=== PATIENT | female | born 2000 | race African-American/Black ===

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

== ENCOUNTER 2024-07-28 19:50 | Emergency (ER) | payer OTHER ==
--- NOTE | 2024-07-28 22:24 | EDPHYS ---
Physician Documentation [facility] Name: Flakito Adkins Age: 24 yrs Sex: Female : 2000 Arrival Date: 07/28/2024 Time: 19:50 Bed 25 Private MD: ED Physician Arun Leslie HPI: 07/28 20:04 This 24 yrs old Black Female presents to ER via Unassigned with complaints of Flank sp4 Pain. 22:37 24-year-old female presents with sudden onset of left lower chest pain worse with deep sp4 inspiration. Patient denied fever chills or cough. . 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 - Infectious Disease History:: Denies. - Social history:: Smoking status: Patient/guardian denies using tobacco, Patient uses alcohol, occasionally. - Family history:: not pertinent. ROS: 22:37 Constitutional: Negative for fever, chills, and weight loss, positive left lower chest sp4 pleuritic chest pain 22:37 All other systems are negative, Exam: 22:37 Constitutional: This is a well developed, well nourished patient who is awake, alert, sp4 and in no acute distress. Head/Face: Normocephalic, atraumatic. Eyes: Pupils equal round and reactive to light, extra-ocular motions intact. Lids and lashes normal. Conjunctiva and sclera are not injected. Cornea within normal limits. Periorbital areas with no swelling, redness, or edema. ENT: Nares patent. No nasal discharge, no septal abnormalities noted. Tympanic membranes are normal and external auditory canals are clear. Oropharynx with no redness, swelling, or masses, exudates, or evidence of obstruction, uvula midline. Mucous membranes moist. Neck: Trachea midline, no thyromegaly or masses palpated, and no cervical lymphadenopathy. Supple, full range of motion without nuchal rigidity, or vertebral point tenderness. Chest/axilla: Normal chest wall appearance and motion. Nontender with no deformity. No lesions are appreciated. Cardiovascular: Regular rate and rhythm with a normal S1 and S2. No gallops, murmurs, or rubs. Normal PMI, no JVD. No pulse deficits. Respiratory: Lungs have equal breath sounds bilaterally, clear to auscultation and percussion. No rales, rhonchi or wheezes noted. No increased work of breathing, no retractions or nasal flaring. Abdomen/GI: Soft, with normal bowel sounds. No distension or tympany. No guarding or rebound. No evidence of tenderness throughout. Back: No spinal tenderness. No costovertebral tenderness. Skin: Warm, dry with normal turgor. Normal color with no rashes, no lesions, and no evidence of cellulitis. MS/ Extremity: Pulses equal, no cyanosis. Neurovascular intact. Full, normal range of motion. Neuro: Awake and alert, GCS 15, oriented to person, place, time, and situation. Cranial nerves II-XII grossly intact. Motor strength 5/5 in all extremities. Sensory grossly intact. Psych: Awake, alert, with orientation to person, place and time. Behavior, mood, and affect are within normal limits Vital Signs: 20:08 BP 132 / 65; Pulse 81; Resp 18 S; Temp 97.1(O); Pulse Ox 97% on R/A; Weight 64.41 kg; me1 Height 5 ft. 3 in. ; Pain 4/10; 20:08 Body Mass Index 25.15 (64.41 kg, 160.02 cm) me1 20:08 Pain Scale: Adult me1 Steve Coma Score: 22:37 Eye Response: spontaneous(4). Motor Response: obeys commands(6). Verbal Response: sp4 oriented(5). Total: 15. MDM: 20:09 Medical Screening Exam initiated sp4 22:36 ED course: Patient was assessed and evaluated in the emergency room chair #3, sp4 appropriate orders were placed. Patient complains of pleuritic left lower chest pain. Left flank pain as well. Vital signs are stable. Patient subsequently placed back in a waiting room while she is waiting for emergency room in ER. Patient apparently eloped from the waiting area in ER.. 22:40 Differential diagnosis: nephrolithiasis, pyelonephritis, Pleurisy. Data reviewed: vital sp4 signs, nurses notes. ED course: Patient left the emergency department prior to any completion of any ordered tests.. 07/28 20:05 Order name: IV Saline Lock sp4 07/28 20:05 Order name: Labs collected and sent sp4 Administered Medications: No medications were administered Disposition: 22:41 Chart complete. sp4 Disposition Summary: 07/28/24 22:23 Eloped Notes: Disposition: before being seen by provider br2 Reason: (see nurse's notes) br2 Signatures: Dispatcher [employer] Arun Monreal MD MD sp4 Nicole Kelly RN RN me1 Trina Holland RN RN br2
--- NOTE | 2024-07-28 22:24 | ER ---
Nurse's Notes [facility] Name: Flakito Adkins Age: 24 yrs Sex: Female : 2000 Arrival Date: 07/28/2024 Time: 19:50 Bed 25 [facility] MD: Diagnosis: Presentation: 07/28 20:08 Chief complaint: Patient states: LATERAL ABDOMINAL PAIN SINCE SATURDAY...WORSE TODAY me1 AFTER THE GYM. PT STATES SHE HAS PUSHING HERSELF HARDER AT THE GYM. Coronavirus screen: Client denies travel out of the [place] in the last 14 days. Ebola Screen: Patient denies exposure to infectious person. Initial Sepsis Screen: Does the patient meet any 2 criteria? No. Patient's initial sepsis screen is negative. Does the patient have a suspected source of infection? No. Patient's initial sepsis screen is negative. Risk Assessment: Do you want to hurt yourself or someone else? Patient reports no desire to harm self or others. Onset of symptoms was July 27, 2024. 20:08 Method Of Arrival: Ambulatory az1 20:08 Acuity: GOVIND 3 me1 Triage Assessment: 20:10 General: Appears in no apparent distress. comfortable, Behavior is calm, cooperative. me1 Pain: Complains of pain in anterior aspect of left lateral abdomen Pain currently is 4 out of 10 on a pain scale. 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 - Infectious Disease History:: Denies. - Social history:: Smoking status: Patient/guardian denies using tobacco, Patient uses alcohol, occasionally. - Family history:: not pertinent. Vital Signs: 20:08 BP 132 / 65; Pulse 81; Resp 18 S; Temp 97.1(O); Pulse Ox 97% on R/A; Weight 64.41 kg; me1 Height 5 ft. 3 in. ; Pain 4/10; 20:08 Body Mass Index 25.15 (64.41 kg, 160.02 cm) me1 20:08 Pain Scale: Adult me1 [place] Coma Score: 22:37 Eye Response: spontaneous(4). Motor Response: obeys commands(6). Verbal Response: sp4 oriented(5). Total: 15. ED Course: 19:55 Patient arrived in ED. gm2 20:04 Arun Leslie MD is Attending Physician. sp4 20:10 Triage completed. me1 20:10 Arm band placed on right wrist. me1 Administered Medications: No medications were administered Outcome: 22:23 Patient left the ED. br2 Signatures: Arun Leslie MD MD sp4 Nicole Kelly RN RN me1 Nakita Ramirez gm2 Trina Holland RN RN br2
[2024-07-28 22:28] VITALS: BP 132/65; TEMP 97.1; O2SAT 97
== END 2024-07-28 22:23 | disposition left against medical advice (07) ==
LOC: ER 19:50
DX: Z53.21 Procedure and treatment not carried out due to patient leaving prior to being seen by health care provider (principal)
CPT/HCPCS: 99281